=== PATIENT | male | born 1955 | race Caucasian/White ===

== ENCOUNTER → 2017-02-12 | Outpatient (CLI) | payer OTHER ==
[~2017-02-12] MED LIST: IOHEXOL 300 MG/ML 100ml INJECTION ONE; NORMAL SALINE 100 ML ONE; SALINE FLUSH 10ml SYRINGE ONE
--- NOTE | 2017-02-12 14:25 | DI ---
Indication: ITS.REASON: C61 PROSTATE CA PROCEDURE: CT ABD/PELVIS W/CONTRAST ONLY: Encounter: Initial Comparison: None Technique: Axial CT images were performed through the abdomen and pelvis after the administration of intravenous contrast. Coronal and sagittal two-dimensional reformats. Automated Exposure Control and Iterative Reconstruction dose reducing techniques were utilized. Contrast: Omnipaque 300 100 mL Findings: Mild scarring in the right middle and lower lobes. Two left lower lobe nodules are noted. The largest on image #6 measures 1 cm in diameter. Smaller nodule on image #7 or posteriorly measures 0.6 cm. The liver appears normal. The gallbladder is normal. The spleen, pancreas and adrenal glands are within normal limits. The right kidney is normal. Tiny probable cyst in the superior pole of the left kidney which is otherwise normal. There is some mesenteric haziness and stranding in the central abdominal mesentery with an increased number of small nodes with a "laverne mesentery" appearance. No discrete mesenteric mass or pathologically enlarged lymph node present. No retroperitoneal adenopathy. The bladder appears normal. Prostate shows calcifications without obvious enlargement or contour deforming mass. No free fluid. Sigmoid diverticulosis without acute diverticulitis. The appendix is normal. No bowel obstruction. Bone windows show a 1.1 cm sclerotic focus in the right iliac bone that could represent a bone island. Bilateral L5 spondylolysis with grade 2 spondylolisthesis of L5 on S1. No additional bony lesions seen. Impression: 1. Indeterminate left lower lobe pulmonary nodules could be due to granulomas or metastases. Recommend correlation with any available prior CT to evaluate for stability. Dedicated chest CT may be helpful for further evaluation. 2. Right iliac bone sclerotic lesion probably representing a bone island rather than an isolated osseous metastasis. Recommend correlation with nuclear medicine bone scan. 3. Nonspecific hazy appearance to the mesentery could be due to old trauma, inflammation or infection. .
--- NOTE | 2017-02-12 16:43 | DI ---
Indication: ITS.REASON: C61 PROSTATE CA PROCEDURE: NM BONE SCAN, WHOLE BODY: Encounter: Subsequent Comparison: CT abdomen/pelvis from today Technique: 26.7 mCi of Tc-99m MDP was administered intravenously. Anterior and posterior planar whole-body and spot images were obtained. FINDINGS: The scan demonstrates the expected normal biodistribution for the radiotracer. There is probable degenerative uptake seen in the knees and ankles. No tracer uptake seen in the area of right iliac bone lesion seen on the CT suggesting that this represents a benign bone island. There is no abnormal radiotracer uptake to suggest bony metastasis. IMPRESSION: No evidence of metastatic disease to the skeleton. .
== END ==
LOC: IMA 11:55
PROVIDERS: ATTEND Surgery
DX: C61 Malignant neoplasm of prostate (principal); R91.8 Other nonspecific abnormal finding of lung field; M89.9 Disorder of bone, unspecified; R93.5 Abnormal findings on diagnostic imaging of other abdominal regions, including retroperitoneum
CPT/HCPCS: 36415; 74177; 78306; 82565; 84520; A9503; J7050; Q9967